=== PATIENT | male | born 1965 | race African-American/Black ===

== ENCOUNTER 2024-09-22 00:33 | Emergency (ER) | payer MEDICAID ==
[~2024-09-22] VITALS: Ht 167.6 cm; Wt 68.0 kg
[2024-09-22 00:38] VITALS: BP 126/78; PULSE 80; RESP 18; TEMP 36.9; O2SAT 97
== END 2024-09-22 02:53 | disposition home or self-care (01) ==
LOC: ER 00:33
DX: H10.213 Acute toxic conjunctivitis, bilateral (principal)
CPT/HCPCS: 99283

== ENCOUNTER 2025-04-23 21:46 | Emergency (ER) | payer MEDICAID ==
[~2025-04-23] VITALS: Ht 165.1 cm; Wt 64.0 kg
[2025-04-23 21:53] VITALS: O2SAT 100
[2025-04-23] MEDS: ACETAMINOPHEN 325MG TABLET PO ONE (23:01)
[2025-04-23 23:11] LABS: BASOPHILS % 0.9 % (0.0-2.0); EOSINOPHILS % 3.2 % (0.0-5.0); HEMATOCRIT. 42.9 % (42.0-52.0); HEMOGLOBIN. 14.4 g/dL (14.0-18.0); LYMPHOCYTES % 17.7 % (20.0-50.0); MEAN PLATELET VOLUME 9.7 fl (7.4-10.4); MONOCYTES % 10.2 % (2.0-8.0); NEUTROPHILS % 68.0 % (40.0-76.0); PLATELET 182 x1000/uL (130-400); RED BLOOD CELL COUNT 4.57 mill/uL (4.7-6.1); RED CELL DISTRIBUTION WIDTH 13.5 % (11.6-14.6)
[2025-04-23 23:29] LABS: CREATININE 0.8 mg/dL (0.6-1.3); ETHANOL BLOOD < 10 mg/dL (<10); UREA NITROGEN BLOOD 6 mg/dL (9-23)
[2025-04-24] MEDS ORDERED: IBUP-1455 MT (00:32)
[2025-04-24 01:29] VITALS: BP 107/74; PULSE 77; RESP 16; O2SAT 100
== END 2025-04-24 01:32 | disposition home or self-care (01) ==
LOC: ER 21:46
DX: G44.209 Tension-type headache, unspecified, not intractable (principal); F14.90 Cocaine use, unspecified, uncomplicated
CPT/HCPCS: 36415; 80048; 80320; 85025; 99284; G0480